=== PATIENT | female | born 1965 | race Caucasian/White ===

== ENCOUNTER 2016-09-08 16:10 | Observation (INO) | payer MEDICARE ==
[~2016-09-08] VITALS: Ht 167.6 cm; Wt 90.3 kg
[2016-09-08] VITALS (10 sets, daily range): BP systolic 103–167; BP diastolic 56–83; PULSE 45–75; RESP 11–20; O2SAT 94–100
[~2016-09-08 16:10] MED LIST: ASPI81TA2 PO; BUPR200T2 PO; Dexamethasone 4 mg/mL Inj ONE; EPHEDrine/NS 5 mg/mL 5 mL Syringe ONE; Glycopyrrolate 0.2 MG/ML 1mL Inj ONE; HYDROmorphone 2 mg/mL Inj ONE; Ketamine 10 mg/mL 20 mL Inj ONE; Neostigmine 1 mg/mL 10 mL Inj ONE; ONDA8TAB10 PO; Ondansetron 2 mg/mL 2 mL Inj ONE; PROC25SU30 RC; Propofol 10,000 mCg/mL 20 mL Inj ONE; Rocuronium 10 mg/mL 5 mL Inj ONE; Succinylcholine Chloride 20 mg/mL 5 mL Inj ONE; fentaNYL-PF 50 mCg/mL 2 mL Inj ONE
[2016-09-08] MEDS ORDERED: 0.9% Sodium Chloride 1,000 ML IV ONE (16:55)
--- NOTE | 2016-09-08 17:08 | ED.REPORT ---
HPI-Abd Pain F 40 and Over Date of Service Sep 08, 2016 ED Provider: Brian Justin PA-C Charlette is a 51-year-old female with a history of fibromyalgia, migraines, hypertension and gastric bypass surgery who presents emergency Department with a chief complaint of epigastric pain. She states this pain has been worsening over the last 3 weeks. She describes it as sharp and intermittent and rates it as 7/10. She states that the episodes last approximately 15 minutes. She admits when episode of vomiting without blood yesterday. Denies fever, black/ tarry stools. Admits to an episode of diarrhea but also admits that this is common for her. She also complains of increasing weakness, shortness of breath, difficulty walking, feeling shaky over the last week. She states that this is how she felt when she was hypokalemic previously due to diuretic use. She takes potassium supplements now. Denies history of blood clots, recent trauma, surgery, travel. Denies exogenous estrogen, unilateral leg swelling, hemoptysis. She also complains of chronic sinus infection since last May. She was treated last month for Levaquin, prednisone and Flonase for her symptoms continue. Complains of left ear pain. Patient states that she recently left her previous pain clinic and has been off of her narcotic pain medications. She is waiting to establish care at her new clinic. Admits smoking. Denies cardiac history, chest pain, palpitations, urinary symptoms. She is on her menstrual period now. Nursing Notes Stated Complaint: SOB,DIZZY Chief Complaint: General Complaint Nursing Notes Reviewed: Yes Allergies: Coded Allergies: chlorzoxazone (Verified Allergy, Severe, altered mental status, 11/10/15) NSAIDS (Non-Steroidal Anti-Inflamma (Verified Allergy, Unknown, 11/10/15) Sulfa (Sulfonamide Antibiotics) (Verified Allergy, Unknown, 11/10/15) tetracycline (Verified Allergy, Unknown, 11/10/15) Scheduled Ondansetron ODT (Ondansetron ODT) 8 Mg Tab.rapdis 8 MG PO QID Scheduled PRN Prochlorperazine Maleate (Compazine Suppository) 25 Mg Supp.rect 25 MG RC Q8 PRN PRN For Nausea/Vomiting Miscellaneous Medications Aspirin-Expunged Drug, Do Not Renew! (Aspirin-Expunged Drug, Do Not Renew!) 81 Mg Tab 81 MG PO Bupropion-Expunged Drug, Do Not Renew! (Bupropion SR-Expunged Drug, Do Not Renew !) 200 Mg Tablet.sa 200 MG PO General Time Seen by MD: 16:34 Chief Complaint Abdominal pain Sudden in Onset?: No Past Medical History Past Medical History Fibromyalgia Arthritis Migraines Hypertension Past Surgical History gastric bypass Family History Reviewed, not relevant Smoking History Current Every Day Smoker Social History Alcohol Use: Denies alcohol use Drug Use: Denies drug use Other Social History: Good social support, Local resident Ambulatory Status Independent Review of Systems General: Denies fever, admits chills, malaise. HEENT: Denies congestion, headache, sore throat. Respiratory: Admits shortness of breath. Denies dyspnea, cough, wheezing. Cardiovascular: Denies chest pain, palpitations. Gastrointestinal: Admits vomiting, diarrhea, abdominal pain. Genitourinary: Denies frequency, urgency, dysuria, hematuria. Otherwise as noted in HPI. Physical Exam General: Well appearing, well developed, obese, no acute distress. Head: Atraumatic, normocephalic. No mastoid tenderness. Eyes: No scleral icterus or injection. No discharge. PERRL. Vision grossly intact. Ears: Pinna and tragus nontender with manipulation. External auditory canal patent, atraumatic and without discharge bilaterally. Right Tympanic membrane esparza, shiny and translucent without fluid, bulging, retraction or perforation. Left Tympanic membrane dull, bulging with purulent fluid. Hearing grossly intact. Nose: Symmetrical, nares patent without discharge. Mild frontal and maxillary sinus tenderness. Mouth/pharynx: normal dentition, mucus membranes moist. Tonsils 2+ and symmetrical, uvula midline. Pharynx noninjected, no cobblestoning or discharge. Voice clear. Neck: No tenderness or lymphadenopathy. Trachea midline. Respiratory: Regular rate and rhythm. Breath sounds present, clear to auscultation and equal bilaterally. No respiratory distress. No increased work of breathing, speaks in complete sentences. Cardiovascular: Regular rate and rhythm, without murmur, gallop or rub. No pedal edema. Gastrointestinal: Abdomen notable for excess skin indicating weight loss and scars consistent with gastric bypass surgery. Mild epigastric and right upper quadrant tenderness without guarding or rebound. Mild to moderate Clarke's sign. Bowel sounds normoactive. No bruising. Skin: Warm and dry. Neurological: Grossly nonfocal. Psychological: Alert and oriented. Speech appropriate, linear and logical. Behavior appropriate. Vital Signs Vital Signs (First) Date Time Temp Pulse Resp B/P Pulse Ox O2 Delivery O2 Flow Rate FiO2 09/08/16 16:13 36.8 75 108/78 100 Initial VS: Reviewed, Vital signs normal Interpretation & Diagnostics Lab Results Interpretation Result Diagram: 09/08/16 1706 09/08/16 1706 Test 09/08/16 17:06 White Blood Count 4.3th/mm3 (3.8-10.1) Red Blood Count 4.19mil/mm3 (3.90-5.20) Hemoglobin 12.2g/dL (12.0-15.6) Hematocrit 37.9% (35.0-46.0) Mean Corpuscular Volume 90.5fL (81-100) Mean Corpuscular Hemoglobin 29.1pg (27.0-35.0) Mean Corpuscular Hemoglobin Concent 32.2% (32.0-37.0) Red Cell Distribution Width 14.9% (12.3-15.4) Platelet Count 259bil/L (150-400) Neutrophils (%) (Auto) 58.0% (40-74) Lymphocytes (%) (Auto) 31.4% (14-46) Monocytes (%) (Auto) 5.5% (4-12) Eosinophils (%) (Auto) 4.6% (0-5) Basophils (%) (Auto) 0.5% (0-3) Sodium Level 138mEq/L (134-144) Potassium Level 4.2mEq/L (3.5-5.2) Chloride Level 102mEq/L (97-108) Carbon Dioxide Level 21mmol/L (18-29) Blood Urea Nitrogen 25mg/dL (6-24) Creatinine 0.88mg/dL (0.57-1.00) Estimat Glomerular Filtration Rate 97mL/min (>59) Glucose Level 92mg/dL (60-99) Calcium Level 9.1mg/dL (8.5-10.1) Total Bilirubin 0.2mg/dL (0.0-1.2) Aspartate Amino Transf (AST/SGOT) 63U/L (0-50) Alanine Aminotransferase (ALT/SGPT) 114U/L (0-32) Alkaline Phosphatase 104U/L (25-150) Total Protein 7.1g/dL (6.4-8.4) Albumin 4.2g/dL (3.4-5.0) Lipase 26U/L (13-60) Hold Caceres Top Tube Received (Received) US Focused Biliary PROCEDURE: US ABDOMEN, LIMITED ([id number]) INDICATIONS: 51-year-old female with right upper quadrant tenderness and Clarke sign. IMPRESSION: 1. Mildly dilated extrahepatic bile duct, along with findings suspicious for small extrahepatic bile duct stone. 2. Solitary small non mobile gallbladder polyp, without additional gallstones. Re-Eval/Medical Decision Med Decision/Clinical Course PERC negative Consultation : Referral / Consult Name: Santiago Pappas MD Consulted With: Surgeon Call Returned at: 19:33 Note: Discussed the case with Dr. Petit who met with the examine the patient. He feels she is a good candidate for surgery and is taking her to the operating room. Discharge & Departure Primary Impression: Bile duct stone Cholecystitis presence: without cholecystitis Additional Impression: Left otitis media Otitis media type: unspecified Chronicity: unspecified Qualified Code: H66.92 - Otitis media, unspecified, left ear Disposition: ADMITTED TO HOSPITAL Referrals: James Whitney DO (PCP) EDSupervising Provider for APC: Demetri Cordon DO copies to: James Whitney Seth PA-C Sep 08, 2016 17:08
[2016-09-08 17:29] LABS: BASOPHILS % (AUTO) 0.5 % (0-3); EOSINOPHILS % (AUTO) 4.6 % (0-5); MONOCYTES % (AUTO) 5.5 % (4-12); Mean Corpuscular Hemoglobin 29.1 pg (27.0-35.0); Mean Corpuscular Volume 90.5 fL (81-100); Platelet Count 259 bil/L (150-400)
[2016-09-08] MEDS: HYDROmorphone 0.5 mg/0.5 mL iSecure Syringe IVPUSH PRN ×2 (17:32→18:04)
--- NOTE | 2016-09-08 18:22 | DRSVH ---
PROCEDURE: US ABDOMEN, LIMITED ([id number]) INDICATIONS: 51-year-old female with right upper quadrant tenderness and Clarke sign. TECHNIQUE: Real-time focused scanning was performed of the abdomen, with image documentation. COMPARISON: None. FINDINGS: No gallstones or biliary sludge. Small non mobile gallbladder polyp is noted. Gallbladde r wall thickness is normal. No pericholecystic fluid. No sonographic Clarke's sign. Extrahepatic b ile duct is mildly dilated up to 8 mm. A less than 5 mm echogenic focus is noted within. IMPRESSION: 1. Mildly dilated extrahepatic bile duct, along with findings suspicious for small extrahepatic bile duct stone. 2. Solitary small non mobile gallbladder polyp, without additional gallstones. Dictated by: Brian Skinner M.D. on 09/08/2016 at 18:18 Approved by: Brian Skinner M.D. on 09/08/2016 at 18:21
[2016-09-08] MEDS ORDERED: CeFAZolin Inj 2 GM in IV Premix 1 EACH IV ONE (19:55)
[2016-09-08] MEDS ORDERED: Lactated Ringer's 1,000 ML IV SCH ×2 (20:24→21:35)
[2016-09-08] MEDS ORDERED: Lactated Ringer's 500 ML IV PRN (20:24)
[2016-09-08] MEDS ORDERED: Ondansetron 2 mg/mL 2 mL Inj IVPUSH PRN ×2 (20:25→21:30)
[2016-09-08] MEDS ORDERED: Dexamethasone 4 mg/mL Inj IVPUSH PRN (20:25)
[2016-09-08] MEDS ORDERED: MetoCLOpramide 5 mg/mL 2 mL Inj IVPUSH PRN ×2 (20:25→21:35)
[2016-09-08] MEDS ORDERED: EPHEDrine Sulfate 50 mg/mL Inj IVPUSH PRN (20:25)
[2016-09-08] MEDS ORDERED: Phenylephrine 10,000 mCg/mL Inj IVPUSH PRN (20:25)
[2016-09-08] MEDS ORDERED: Bupivacaine-MPF 0.5% W/EPI 30 mL Inj INFILTRATE ONE (20:55)
--- NOTE | 2016-09-08 20:58 | PCM.HPANE ---
Patient Data Date of Service: Sep 08, 2016 Surgeon Admitting Provider: Attending Provider:Santiago Pappas MD Primary Care Physician:James Whitney DO Other Provider: Reason for Visit Cholelithiasis Ht/WT & BMI Height (Feet): 5 Height (Inches): 6 Weight (Kilograms): 90.91 Body Mass Index Allergies Coded Allergies: chlorzoxazone (Verified Allergy, Severe, altered mental status, 11/10/15) NSAIDS (Non-Steroidal Anti-Inflamma (Verified Allergy, Unknown, 11/10/15) Sulfa (Sulfonamide Antibiotics) (Verified Allergy, Unknown, 11/10/15) tetracycline (Verified Allergy, Unknown, 11/10/15) Diabetes History Hx Diabetes?: No MRSA MRSA: No Medications Hypertension Medication: No Home Meds Incl Beta Cheko: No Active Scripts Ondansetron ODT 8 Mg Tab.rapdis8 Mg PO QID #20 TABLET Prov:Bashir Durán MD 11/10/15 Prochlorperazine Maleate (Compazine Suppository)25 Mg Supp.rect25 Mg RC Q8 PRN For Nausea/Vomiting #20 SUPP.RECT Prov:Bashir Durán MD 11/10/15 Reported Medications Bupropion-Expunged Drug, Do Not Renew! (Bupropion SR-Expunged Drug, Do Not Renew !)200 Mg Tablet.sa200 Mg PO 06/20/12 Aspirin-Expunged Drug, Do Not Renew! 81 Mg Tab81 Mg PO 06/20/12 History History of ENT Problems?: No Hx of Heart Problems?: Yes Cardiovascular History: Positive for:: Hypertension Denies:: Congestive Heart Failure Hx of Respiratory Problem?: Yes Respiratory History: Denies:: Tuberculosis Other History/Comment tobacco Hx Neurologic Problems?: Yes Neurological History: Positive for:: Headaches Hx of GI Problems?: Yes Gastrointestinal History: Positive for:: Gall Bladder Disease Hx of Problems?: No Hx Musculoskeletal Problems?: Yes Musculoskeletal History: Positive for:: Fibromyalgia Hx of Psycho/Social Problems?: Yes Psycho Social History: Positive for:: Anxiety Hx Surgeries?: Yes (gastric bypass (2008)) Hx Diabetes: No Other History/Comment chronic opioid for pain Hx Alcohol Use: NoHx Substance Use: No Smoking Status: Current Every Day Smoker Have You Smoked inLast 12 mo: Yes Stop/Bang Treated for Sleep Apnea?: No Do You Have a CPAP Machine?: No S-Snoring: Do You Snore Loudly: No T-Tired: feel tired, fatigued: No O-Obsered: Observed not breath: No P-Blood Pressure: treated: Yes B- Body Mass Index > 35 kg/m2: No A- Age over 50: Yes N- Neck Large Circumference: No G- Gender Male: No SHARLA Risk Assessment: Low Risk, <3 Yes Risk Assessment Category Category 1A: Patient has history of documented sleep apnea, and HAS NOT received any narcotic, sedative or anesthesia administration during this stay. Category 1B: Patient has history of documented sleep apnea, and HAS received any narcotic , sedative or anesthesia administration during this stay Category 2: Patient has SUSPECTED Obstructive Sleep Apnea, and HAS received any narcotic , sedative or anesthesia administration during this stay. Category 3: Patient has SUSPECTED Obstructive Sleep Apnea and HAS NOT received narcotic, sedative or anesthesia administration during this stay. Category 4: Outpatient in Procedural Areas with known sleep apnea or who screen positive for High Risk via the STOP/BANG questionnaire. Exam Exam Vital Signs Vital Signs Date Time Temp Pulse Resp B/P Pulse Ox O2 Delivery O2 Flow Rate FiO2 09/08/16 16:13 36.8 75 108/78 100 General Appearance: Alert, Oriented X3 HEENT/AIRWAY: MP 1 Lungs: Clear to Auscultation Heart: Exam Unremarkable Meds/Labs/Diagnostics Admission Meds Current Medications Sodium Chloride (Normal Saline) 1,000 ml @ 0 mls/hr Q0M ONCE IV Last administered on 09/08/16t 17:18; Start 09/08/16 at 16:55; Stop 09/08/16 at 16:56; Status DC Labs Test 09/08/16 17:06 White Blood Count 4.3th/mm3 (3.8-10.1) Red Blood Count 4.19mil/mm3 (3.90-5.20) Hemoglobin 12.2g/dL (12.0-15.6) Hematocrit 37.9% (35.0-46.0) Mean Corpuscular Volume 90.5fL (81-100) Mean Corpuscular Hemoglobin 29.1pg (27.0-35.0) Mean Corpuscular Hemoglobin Concent 32.2% (32.0-37.0) Red Cell Distribution Width 14.9% (12.3-15.4) Platelet Count 259bil/L (150-400) Neutrophils (%) (Auto) 58.0% (40-74) Lymphocytes (%) (Auto) 31.4% (14-46) Monocytes (%) (Auto) 5.5% (4-12) Eosinophils (%) (Auto) 4.6% (0-5) Basophils (%) (Auto) 0.5% (0-3) Sodium Level 138mEq/L (134-144) Potassium Level 4.2mEq/L (3.5-5.2) Chloride Level 102mEq/L (97-108) Carbon Dioxide Level 21mmol/L (18-29) Blood Urea Nitrogen 25mg/dL (6-24) Creatinine 0.88mg/dL (0.57-1.00) Estimat Glomerular Filtration Rate 97mL/min (>59) Glucose Level 92mg/dL (60-99) Calcium Level 9.1mg/dL (8.5-10.1) Total Bilirubin 0.2mg/dL (0.0-1.2) Aspartate Amino Transf (AST/SGOT) 63U/L (0-50) Alanine Aminotransferase (ALT/SGPT) 114U/L (0-32) Alkaline Phosphatase 104U/L (25-150) Total Protein 7.1g/dL (6.4-8.4) Albumin 4.2g/dL (3.4-5.0) Lipase 26U/L (13-60) Hold Caceres Top Tube Received (Received) Plan Impression Patient chart reviewed, patient interviewed and anesthestic plan with risks, benefits, and alternatives discussed, and informed consent obtained. NPO Status: 1200 ASA Physical Status: ASA2 Mod Systemic Disease Anesthetic Plan: GA Bene/Risks/Altern/Consents: Yes HP Complete Prior to Induction: Yes Armen Vogel MD Sep 08, 2016 20:58
--- NOTE | 2016-09-08 21:27 | DRSVH ---
PROCEDURE: X-RAY OPERATIVE CHOLANGIOGRAM ([id number]) INDICATIONS: 51-year-old female with acute cholecystitis. COMPARISON: [facility], , [facility], 09/08/2016, 17:20. FINDINGS: Biliary ducts: The surgeon injected contrast into the biliary ducts after cannulation of the cystic duct stump. Visualized intra hepatic bile ducts are normal in caliber, without strictures. There is mild dilation of the extrahepatic bile duct. No intraluminal filling defects to suggest retained du ctal stones or sludge. No evidence for iatrogenic ductal injury. Duodenum: Contrast flows promptly through the sphincter of Oddi into the duodenum, which appears nor mal in caliber. IMPRESSION: Mildly dilated extrahepatic bile duct, with no visualized intraluminal stones. Dictated by: Brian Skinner M.D. on 09/08/2016 at 21:24 Approved by: Brian Skinner M.D. on 09/08/2016 at 21:26
[2016-09-08] MEDS ORDERED: diphenhydrAMINE 25 mg Capsule PO PRN (21:30)
[2016-09-08] MEDS ORDERED: Acetaminophen IV 1,000 MG in IV Premix 1 EACH IV PRN (21:30)
[2016-09-08] MEDS ORDERED: Dextrose 5% 500 ML IV SCH (21:34)
[2016-09-08] MEDS ORDERED: HYDROmorphone PCA 0.2 mg/mL 30 mL Inj IV PRN (21:35)
--- NOTE | 2016-09-08 21:39 | PCM.ANEP1 ---
Post Anesthesia Phase 1 PACU Phase 1 Assessment Date of Service: Sep 08, 2016 Vital Signs Vital Signs Date Time Temp Pulse Resp B/P Pulse Ox O2 Delivery O2 Flow Rate FiO2 09/08/16 21:35 45 18 156/68 95 Room Air 09/08/16 21:31 36.5 48 11 150/83 97 Room Air 09/08/16 16:13 36.8 75 108/78 100 Level of Alertness: Awake, talking Pain: Yes Pain Scale Score: 7 Nausea or Vomiting: No Oxygen Delivery: Room Air Lungs: Clear to Auscultation Armen Vogel MD Sep 08, 2016 21:39
--- NOTE | 2016-09-08 21:39 | PCM.ANEP2 ---
Post Anesthesia Evaluation ASA/CMS Post Anesthesia VS in Patient's Normal Range?: Yes Resp Stable; Airway Patent?: Yes CV Function & Hydration Stable: Yes Mental Status Recovered?: Yes Pain control Satisfactory?: Yes N/V Control Satisfactory?: Yes Armen Vogel MD Sep 08, 2016 21:39
[2016-09-08] MEDS: HYDROmorphone 1 mg/mL Inj IVPUSH PRN ×3 (21:44→22:00)
[2016-09-08] MEDS: fentaNYL-PF 50 mCg/mL 2 mL Inj IVPUSH PRN ×2 (21:54→22:00)
[2016-09-08] MEDS ORDERED: Acetaminophen IV 1,000 MG in IV Premix 1 EACH IV ONE (22:05)
[2016-09-08] MEDS ORDERED: Lactated Ringer's 1,000 ML IV ONE (22:21)
[2016-09-08] MEDS ORDERED: TOPI100T32 PO (23:57)
[2016-09-08] MEDS ORDERED: METH750T3 PO (23:57)
[2016-09-08] MEDS ORDERED: POTA99TA21 PO (23:57)
[2016-09-08] MEDS ORDERED: DULO60CA42 PO (23:57)
[2016-09-08] MEDS ORDERED: HYDR12.5 PO (23:57)
[2016-09-08] MEDS ORDERED: PHEN-877 PO (23:57)
[2016-09-08] MEDS ORDERED: GABA600T2 PO (23:57)
[2016-09-09] MEDS ORDERED: DULoxetine 30 mg DR Capsule PO SCH (00:18)
[2016-09-09] MEDS ORDERED: ALPR0.5T PO (00:22)
[2016-09-09] MEDS ORDERED: ALPRAZolam 0.5 mg Tablet PO PRN (01:05)
[2016-09-09 01:45] VITALS: RESP 14; O2SAT 98
--- NOTE | 2016-09-09 02:04 | HP ---
[address] [address] HISTORY AND PHYSICAL PATIENT: MICHELLE MCLAUGHLIN : 1965 MR#: [id number] ADMIT: 09/08/2016 JOB ID: [id number] CHIEF COMPLAINT: Brian Justin has asked me to see this 51-year-old woman with symptomatic gallstones. HISTORY OF PRESENT ILLNESS: The patient presented to the emergency department today with an array of symptoms including weakness, shortness of breath, difficulty walking and feeling shaky over the previous week, but these all seem to be related with episodes of epigastric and right upper quadrant pain that comes on and lasts for approximately 15-30 minutes, but has now come on gradually and has remained at a level of 2/10. The patient does have chronic pain and fibromyalgia, but this is different than her chronic pain. PAST MEDICAL HISTORY: Laparoscopic gastric bypass in July 2007 with a good weight loss result. She has baseline intermittent diarrhea, nausea and vomiting that she attributes to this. MEDICATIONS: 1. Ondansetron q.i.d. 2. PRN Compazine suppositories. ALLERGIES: 1. SULFA. 2. TETRACYCLINE. 3. As well, she has been told not to take NONSTEROIDAL ANTI-INFLAMMATORY DRUGS after her gastric bypass. SOCIAL HISTORY: Lives with her . Smokes cigarettes on a daily basis. Does not drink alcohol on a daily basis. FAMILY HISTORY: Noncontributory. REVIEW OF SYSTEMS: Full review of systems negative. PHYSICAL EXAMINATION: Vital signs within normal limits. Temperature is 36.8, pulse is 77, blood pressure is 108/78. Her sclerae are clear. Her neck has some reduced range of motion. She complains of tenderness in her shoulders. Breasts are not examined. Lungs are clear. Heart sounds are regular. Abdomen is soft, with scars consistent with her previous surgical history. No palpable hernias. No significant right upper quadrant tenderness. Extremities without edema. LABORATORY DATA: White count is 4.3, hematocrit is 37.9. Electrolytes normal. BUN is mildly elevated at 25. LFTs and lipase are normal except for mild elevation of her AST and ALT at 63 and 114. IMAGING: She had abdominal ultrasound that shows what I believe is a possible gallstone that is read by radiologist as small nonmobile gallbladder polyp. However, it is felt that she has an extrahepatic bile duct that is 8 mm and has a 5 mm echogenic focus within it that is suspicious for an extrahepatic bile duct stone. IMPRESSION AND PLAN: I think that she has asymptomatic gallstones. Although she does have a chronic pain consultation, she now has an acute pain that sounds very consistent with biliary colic. Given her history of gastric bypass, she would be a difficult candidate for an ERCP. On that basis, I have recommended that we proceed with a laparoscopic cholecystectomy for symptomatic gallstones with intraoperative cholangiogram. We did talk about the option of no surgery or delayed surgery, and she would like to proceed as soon as possible. We discussed risks, benefits, and possible complications of surgery, including common duct injury, and she would like to proceed today.
[2016-09-09 03:55] VITALS: RESP 14; O2SAT 100
[2016-09-09] MEDS ORDERED: 0.9% Sodium Chloride 100 ML ONE (04:17)
[2016-09-09 06:19] VITALS: RESP 14; O2SAT 100
[2016-09-09 06:29] VITALS: BP 115/71; PULSE 82; RESP 18; O2SAT 97
--- NOTE | 2016-09-09 08:38 | OP ---
[address] [address] OPERATIVE REPORT PATIENT: MICHELLE MCLAUGHLIN : 1965 MR#: [id number] ADMIT: 09/08/2016 JOB ID: [id number] DATE OF SURGERY: 09/08/2016 PREOPERATIVE DIAGNOSIS(ES): Biliary colic, possible choledocholithiasis. POSTOPERATIVE DIAGNOSIS(ES): 1. Biliary colic, possible choledocholithiasis. 2. 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 SURGEON: Santiago Pappas MD SHOT TUBE MACHINE TENDER: Marium Ibarra PA-C PROCEDURE: 1. Laparoscopic cholecystectomy with intraoperative cholangiogram. 2. Laparoscopic exploration of previous gastric bypass anatomy. INDICATION: This is a 51-year-old woman, who presents with a history suggestive of biliary colic in the setting of chronic GI complaints following a very successful laparoscopic gastric bypass in 2008. Liver function tests are mildly abnormal and an ultrasound is read as showing a probable fixed gallbladder polyp, possible common duct stone and an 8 mm common bile duct. She is brought to the operating room for laparoscopic cholecystectomy and cholangiogram for presumptive symptomatic cholelithiasis with biliary colic and possible choledocholithiasis. FINDINGS: 1. No evidence for acute or chronic cholecystitis. 2. Intraoperative cholangiogram demonstrated a very large common duct up to 1 cm with normal ductal anatomy, brief delay of filling of the duodenum, but no evidence of choledocholithiasis at the completion of the procedure. Please see below for details. 3. congressional assistant was medically necessary for the safe and timely completion of the operation, including retraction and camera operation. 4. At the end of the procedure, I did examine her anatomy of her gastric bypass. It appears that she has a retrocolic Gabriel-en-Y gastric bypass with possibly a Tsang space hernia, possibly a hernia in the infracolic position as described below. Please see below for details. DESCRIPTION OF PROCEDURE: The patient was brought to the operating room. General anesthetic was administered. Abdomen was prepped and draped in a sterile fashion. Surgical time-out was performed. SCOAP protocol was followed. She received perioperative Ancef. I began with a Veress needle in the right upper quadrant, followed by insufflation. I then placed an optical trocar in the periumbilical area, followed by three other trocars in our standard gallbladder position. There was no free fluid in the abdomen. Gallbladder was thin-walled, robins egg blue, but it was dilated. There was one band adhesion from the left lobe of the liver to the distal stomach that I snipped. My initial impression was that the patient had a dilated antecolic Gabriel-en-Y limb. We began with the gallbladder. The gallbladder is retracted cephalad. We could easily see what was an obviously dilated common duct. I grasped the infundibulum of the gallbladder and retracted it to the patient's right, and proceeded to dissect close to the gallbladder wall, identifying the cystic duct as it entered the gallbladder. We further dissected out the triangle of Calot, dividing the cystic artery with a clip. I now put a clip on the patient's side of the cystic duct. We made a cystic duct incision and placed our cholangiocatheter once x-ray was available. In the interim, we did further dissection along the gallbladder wall, identifying the cystic plate and dissecting almost up to the top of the gallbladder. We now obtained our cholangiogram. Dye injected easily. We had an initial filling of the cystic duct and then what was an obviously dilated common duct, that I would put at 1 cm or slightly above that. The distal duct filled well. There was no initial flow into the duodenum, and the duct filled up proximally. The distal bile duct did not end in a meniscus but instead was tapered. We saw normal intrahepatic duct anatomy, except for the fact that everything was dilated, and then saw release at the ampulla with a stream of dye going through what appeared to be a fairly tight ampulla, but then with ventral good relaxation and good filling of the duodenum. Again, there was never undue pressure within the bile duct system and I never saw any sort of a meniscus that would be suggestive of a stone. It was an interesting cholangiogram, and I wondered whether there was a small bit of gravel that had been stuck in the ampulla that we flushed through. Unfortunately, at the end of the case, I was notified that the fluoroscopy portion of the operation ended up not being saved despite our request and the standard protocol, so this information is more or less lost. Having completed our cholangiogram, I removed the cholangiocatheter, placed two clips on the patient's side of the cystic duct and divided the cystic duct with scissors. We then dissected the gallbladder out of the liver bed without spillage of any stones but some spillage of bile. The gallbladder was removed in a bag to avoid wound contamination. We suctioned up all of our bile and irrigated it clear, suctioned out all our irrigation. The liver bed was clean without bile leak and without bleeding. We were now done with the cholecystectomy. I decided I would take a quick look at the patient's gastric bypass, as I was under the impression that she had what appeared to be an antecolic dilated Gabriel limb. However, closer inspection revealed that this was indeed the colon and, as we elevated the colon and the transverse mesocolon, it appeared that the patient had some sort of retrocolic Gabriel-en-Y gastric bypass. There was no obvious twist of the bowel and nothing was dilated, though is looking as if she had a potential hernia either through a large opening in the mesocolon or perhaps this was some sort of Tsang space hernia. I elected not to pursue identifying her anatomy further given a number of factors including that we were performing an after hours operation primarily for her gallbladder symptoms as well as the fact that I did not have her operative note available for review, and given the chronic nature of her intermittent nausea and vomiting, there was no urgent need to address what I believed may be one or two internal hernias, though this could also represent a more complex problem. We therefore let out our CO2 and removed our ports under laparoscopic vision, closed the wounds with absorbable suture including an 0-Vicryl at the 12 mm port. The findings were discussed with the patient's . I will review her findings tomorrow, but my recommendation will be to follow up with her bariatric surgeon for review of possible internal hernia and consideration of an elective operation to address these.
--- NOTE | 2016-09-09 09:21 | PCM.DISURG ---
Surgical Discharge Instruction Date of Service Sep 09, 2016 Dates of Hospitalization Date of Hospital Admission Sep 08, 2016 at 22:48 Providers Admitting Physician: Santiago Pappas MD Primary Care Physician: James Whitney DO Attending Physician: Santiago Pappas MD Discharge Diagnosis Discharge Diagnosis 1) symptomatic gallstones, probable choledocholithiasis 2) chronic pain 3) internal hernia s/p gastric bypass 4) tobacco use Post Operative diagnosis same Diet Discharge Diet: No restrictions Activity Discharge Activity-General: No restrictions Dressing and Incisional Care Dressing Care: Allow Steri Stripes to fall off, Remove outer dressing after 24 hrs Hygiene: May shower Additional Instructions Discharge Instructions 1) resume all previous meds 2) follow up with your bariatric surgeon ANKUSH to discuss surgery to fix your internal hernia as it can cause a life threatening bowel obstruction 3) follow up with your new pain clinic for any further narcotic needs Follow Up Plan Follow Up Plan in 2-3 weeks follow up with [facility] General Surgery [facility] clinic to review your pathology and wound check Call your provider for: Other (if you develop severe abdominal pain and vomiting, go to the [facility] or the nearest ED with a bariatric surgeon and tell them you have an internal hernia) Santiago Pappas MD Sep 09, 2016 09:21
[2016-09-09] MEDS ORDERED: OXYC5TAB72 PO (09:23)
--- NOTE | 2016-09-09 15:01 | PROG NOTE ---
[address] [address] PROGRESS NOTE PATIENT: MICHELLE MCLAUGHLIN : 1965 MR#: [id number] ADMIT: 09/08/2016 JOB ID: [id number] DATE: 09/09/2016 The patient is seen the morning after a laparoscopic cholecystectomy. She is afebrile, pulse is 82, blood pressure is normal. She and her confirm that she feels much better after her surgery and that the right upper quadrant pain is gone. I have reviewed the operative findings including probable choledocholithiasis, but as well, findings of what appears to be an internal hernia following her gastric bypass. We discussed that this internal hernia may possibly be related to her intermittent nausea and vomiting, but more importantly, that she is at risk for catastrophic intra-abdominal obstruction and I have recommended that she follow up either with her bariatric surgeon at [place] or obtain the operative note and follow up with another bariatric surgeon, who should proceed with a repair of this internal hernia after possible further workup to understand the specifics of her anatomy. I offered her a prescription for a nicotine patch with the understanding that she will need to follow up with another provider regarding smoking cessation. I have told her that I will be discharging her with 14 oxycodone 5 mg to address her immediate postop pain, but that in terms of her long-term pain management, she will need to follow up with her new pain clinic. She acknowledged this, though then told the nurse that her pain was 8/10. Given her chronic narcotic use and the objective findings, at this point, I do not think that giving her higher doses of narcotics will effectively alleviate her pain, and I have discussed this with the patient and with her nurse. She will be discharged today, follow up regarding her gallbladder surgery with [facility], but regarding her internal hernia, with her bariatric surgeon or another bariatric surgeon, and regarding her chronic pain medications and her smoking cessation with other physicians.
--- NOTE | 2016-09-09 18:29 | DIS ---
[address] [address] DISCHARGE SUMMARY PATIENT: MICHELLE MCLAUGHLIN : 1965 MR#: [id number] ADMIT: 09/08/2016 JOB ID: [id number] DIS: 09/09/2016 DIAGNOSES: 1. Symptomatic gallstones. 2. Probable choledocholithiasis. 3. Chronic pain. 4. Internal hernia, status post gastric bypass. 5. Tobacco use. OPERATIONS AND PROCEDURES: Laparoscopic cholecystectomy with intraoperative cholangiogram, laparoscopic exploration of the abdomen. HOSPITAL COURSE: A 51-year-old woman who presented with progressive right upper quadrant pain that was suggestive of biliary colic. Ultrasound demonstrated gallbladder polyp versus a solitary immobile stone, demonstrated common duct with extrabiliary gallstone in the bile duct. Her past medical history was significant for chronic pain, tobacco use, and a history of laparoscopic gastric bypass at [facility] in . She was taken the operating room where we found a noninflamed gallbladder that was removed. Intraoperative cholangiogram demonstrated that her common duct was dilated, but we did clear this and I do believe that she may have had a small common duct stone that was flushed through. Other possible explanation would be some sort of ampullary spasm. However, the morning after surgery, she was markedly better symptomatically and went home, resuming all of her previous medications with 14 additional oxycodone for pain. At the time of surgery, however, I did identify that she has an internal hernia, status post her gastric bypass that may account for some of her intermittent nausea and vomiting and certainly needs to be addressed and repaired due to the risk of catastrophic small bowel obstruction. This was explained to the patient and the rationale behind why I did not fix this the night before. She will follow up either with her own bariatric surgeon or she will obtain an operative note from [facility] and followup with another bariatric surgeon. I have recommended that she do this as soon as possible. She does have followup scheduled this week with a new pain clinic and I have told her that anything beyond those 14 oxycodone tablets for postop pain that she requires, she will need to go through them. She will follow up in 2-3 weeks with the [facility] General Surgery [facility] clinic to review the pathology of her gallbladder and to check her wounds. I have also given her a prescription for a nicotine patch, though I have told her that she will need to follow up with a primary care physician or her Pain Clinic regarding smoking cessation.
--- NOTE | 2016-09-18 15:54 | PATH ---
SURGICAL PATHOLOGY Attending Physician:Santiago Pappas MD CASE STATUS: Signed Out * Amended * PATIENT NAME: MICHELLE MCLAUGHLIN PID: [id number] : 1965 DATE COLLECTED:09/08/2016 00:00 SPECIMEN: Gallbladder CLINICAL HISTORY: SYMPTOMATIC GALLSTONES 1). GALLBLADDER FINAL DIAGNOSIS: Gallbladder, Laparoscopic Cholecystectomy: Chronic cholecystitis and cholesterolosis. ICD10 K81.1 This case was reviewed and interpreted by Dr. Hannah Austin. The final diagnosis is unchanged. This amendment is issued in order for the report to cross the interface and be available in the hospital electronic medical record. GROSS DESCRIPTION: The specimen is received in one formalin filled container labeled with the patient's name, sublabeled "gallbladder" and consists of an opened 8.0 x 3.0 x 2.0 CM gallbladder. The serosa is smooth. The wall is 0.2-0.4 CM in thickness. The mucosa is a light green in color. The lumen contains a light green mucoid material and no calculus are noted. 5 franchise sales representative sections are submitted in one cassette. 09/10/2016 [facility] ICD-9 CODES: CPT CODES: 1: 52401 AMENDMENT(S): Amended: 09/18/2016 by Tasia Mills Reason:Miscellaneous The final diagnosis is unchanged. This amendment is issued in order for the report to cross the interface and be available in the hospital electronic medical record. Previous Signout Date: 09/12/2016 Electronically Signed Out Enma Luna MD [facility] [address], [place] [address] Technical component performed at [facility], [address] [place] [address] Ave[address], [place], [address]
== END 2016-09-09 10:33 | disposition home or self-care (01) ==
LOC: SED 16:10 → ORA 19:49 → OSC 22:48
PROVIDERS: ADMIT Surgery; ATTEND Surgery
DX: K80.50 Calculus of bile duct without cholangitis or cholecystitis without obstruction (principal); K46.9 Unspecified abdominal hernia without obstruction or gangrene; H66.92 Otitis media, unspecified, left ear; M79.7 Fibromyalgia; I10 Essential (primary) hypertension; M19.90 Unspecified osteoarthritis, unspecified site; F41.9 Anxiety disorder, unspecified; F17.210 Nicotine dependence, cigarettes, uncomplicated; Z88.8 Allergy status to other drugs, medicaments and biological substances; Z98.84 Bariatric surgery status
CPT/HCPCS: 36415; 47563; 74300; 76705; 80053; 83690; 85025; 88304; 96361; 96374; 96375; 96376; 99285; G0378; J0131; J0330; J0690; J1100; J1170; J1885; J2250; J2270; J2405; J2710; J2765; J3010; J7030; J7120; Q9967

== ENCOUNTER 2016-11-09 17:38 | Emergency (ER) | payer MEDICARE ==
[~2016-11-09] VITALS: Ht 167.6 cm; Wt 90.9 kg
[~2016-11-09 17:38] MED LIST changes: +ALPR0.5T PO; -ASPI81TA2 PO; -BUPR200T2 PO; +DULO60CA42 PO; -Dexamethasone 4 mg/mL Inj ONE; -EPHEDrine/NS 5 mg/mL 5 mL Syringe ONE; +GABA600T2 PO; -Glycopyrrolate 0.2 MG/ML 1mL Inj ONE; +HYDR12.5 PO; -HYDROmorphone 2 mg/mL Inj ONE; -Ketamine 10 mg/mL 20 mL Inj ONE; +METH750T3 PO; -Neostigmine 1 mg/mL 10 mL Inj ONE; +OXYC5TAB72 PO; -Ondansetron 2 mg/mL 2 mL Inj ONE; +PHEN-877 PO; +POTA99TA21 PO; -Propofol 10,000 mCg/mL 20 mL Inj ONE; -Rocuronium 10 mg/mL 5 mL Inj ONE; -Succinylcholine Chloride 20 mg/mL 5 mL Inj ONE; +TOPI100T32 PO; -fentaNYL-PF 50 mCg/mL 2 mL Inj ONE
[2016-11-09 17:40] VITALS: BP 114/70; PULSE 79; RESP 16; O2SAT 100
[2016-11-09 18:21] LABS: BASOPHILS % (AUTO) 0.5 % (0-3); EOSINOPHILS % (AUTO) 5.3 % (0-5); MONOCYTES % (AUTO) 8.7 % (4-12); Mean Corpuscular Hemoglobin 28.6 pg (27.0-35.0); Mean Corpuscular Volume 90.2 fL (81-100); Platelet Count 279 bil/L (150-400)
[2016-11-09 18:42] LABS: Magnesium 2.2 mg/dL (1.6-2.6)
[2016-11-09 19:40] LABS: APPEARANCE,URINE CLEAR (CLEAR,HAZY); COLOR,URINE DARK YELLOW (YELLOW); OCCULT BLOOD,URINE LARGE (NEGATIVE); PH,URINE 5.5 (5.0-8.0); UROBILINOGEN,URINE NORMAL (NORMAL)
--- NOTE | 2016-11-09 19:56 | ED.REPORT ---
HPI-Abd Pain F 40 and Over Date of Service Nov 09, 2016 ED Provider: Damon Almeida MD Pt is a 51 year old female with a history of HTN who presents to the ED complaining of abdominal pain onset 1 week ago. The pt had a Cordero hernia repair on the 11/01/16 and reports that the pain has increased since. She describes the pain as stabbing and burning, which are exacerbated by movement. She denies fever, chills, and drainage from the wound. She also denies groin pain, change in bowel habits, and any urinary Sx. The pt admits to vomiting 1x 2 days ago. She had a cholecystectomy in 09/24 at [facility]. Nursing Notes Stated Complaint: PAIN IN ABDOMEN,RT SIDE-SX 8 DAYS AGO Chief Complaint: Female Abdominal Pain Nursing Notes Reviewed: Yes (Vdopia not reconciled) Allergies: Coded Allergies: chlorzoxazone (Verified Allergy, Severe, altered mental status, 11/09/16) NSAIDS (Non-Steroidal Anti-Inflamma (Verified Allergy, Unknown, 11/09/16) Sulfa (Sulfonamide Antibiotics) (Verified Allergy, Unknown, 11/09/16) tetracycline (Verified Allergy, Unknown, 11/09/16) Scheduled Duloxetine (Cymbalta) 60 Mg Capsule.dr 60 MG PO HS Gabapentin (Gabapentin) 600 Mg Tablet 600 MG PO HS Hydrochlorothiazide (Hydrochlorothiazide) 12.5 Mg Capsule 12.5 MG PO DAILY Ondansetron ODT (Ondansetron ODT) 8 Mg Tab.rapdis 8 MG PO QID Phenylephrine HCl (Sudafed PE) 10 Mg Tablet 10 MG PO QID Topiramate (Topamax) 100 Mg Tablet 100 MG PO HS Scheduled PRN Alprazolam (Xanax) 0.5 Mg Tablet 0.5 MG PO BID PRN PRN For Anxiety Methocarbamol (Methocarbamol) 750 Mg Tablet 1,500 MG PO BID PRN PRN For Spasm Methocarbamol (Methocarbamol) 750 Mg Tablet 750 MG PO BID PRN PRN For Spasm Prochlorperazine Maleate (Compazine Suppository) 25 Mg Supp.rect 25 MG RC Q8 PRN PRN For Nausea/Vomiting oxyCODONE (oxyCODONE) 5 Mg Tablet 5 MG PO Q4H PRN PRN For Moderate Pain oxyCODONE-Acetaminophen 5-325 mg (oxyCODONE-Acetaminophen 5-325 mg) 1 Each Tablet 1 TAB PO Q6H PRN PRN For Pain Miscellaneous Medications Potassium Gluconate (Potassium) 99 Mg Tablet 99 MG PO General Time Seen by MD: 19:54 Chief Complaint Abdominal pain Hx Obtained From: Patient Arrived By: Walk-in Sudden in Onset?: No Onset Occurred: 1 week ago Symptom Duration: Since onset Progression since Onset: Constant Location: : RLQ Quality: Painful, Stabbing Severity: Current: Moderate Severity: Maximum: Moderate Recent Healthcare: Recent doctor visit, Previous surgery Similar Sx Previous: Yes Past Medical History Past Medical History Fibromyalgia Arthritis Migraines Hypertension Past Surgical History gastric bypass Cholecystectomy Merged With [facility] September 2016 Cordero hernia repair on 11/01/16 Family History Reviewed, not relevant Smoking History Current Every Day Smoker Social History Alcohol Use: Denies alcohol use Drug Use: Denies drug use Other Social History: Good social support, Local resident Ambulatory Status Independent Review of Systems Denies wound drainage Constitutional: Denies: Chills, Fever GI: Reports: Abdominal pain, Vomiting (1x 2 days ago), Denies: Constipation, Diarrhea Female: Denies: Dysuria, Urination decreased, Urination increased Complete sys rev & neg: except as marked. Physical Exam Vital Signs Vital Signs (First) Date Time Temp Pulse Resp B/P Pulse Ox O2 Delivery O2 Flow Rate FiO2 11/09/16 17:40 36.2 79 16 114/70 100 Room Air Initial VS: Reviewed, Vital signs normal Head / Eyes: Atraumatic, Normocephalic, PERRL ENT: Mucous membranes moist, Conjunctiva normal, No scleral icterus Neck: Supple, Full range of motion Extremities: Vascular intact, Neuro intact, No swelling Skin: Warm, Dry, No cyanosis Neurologic: Alert, Oriented, Nonfocal Psychiatric: Mood/affect normal, Behavior normal General/Constitutional: Awake, Alert, No acute distress, Well appearing, Cooperative, Not toxic appearing Respiratory / Chest: Breath sounds NL, Breath sounds = bilat, No respiratory distress, No rales, No rhonchi, No wheezing, No retractions Cardiovascular: Heart rate NL, Regular rhythm, Heart sounds NL Abdomen: Atraumatic, Soft, No guarding, No rebound, No distention Tenderness/Guarding/Rebound: Positive: Tender RLQ... (Mild) Incisions are clean, dry, and intact. No signs of infection or abscess. Erythema due to applying ice to the area. Back: Full range of motion, Painless range of motion Upper Extremity / MS: Atraumatic, Full range of motion, Neurologic intact, Vascular intact Lower Extremity / Pelvis / MS: Atraumatic, Full range of motion, Neurologic intact, Vascular intact Interpretation & Diagnostics Lab Results Interpretation Result Diagram: 11/09/16 1802 11/09/16 1802 Test 11/09/16 18:02 11/09/16 19:17 White Blood Count 4.4th/mm3 (3.8-10.1) Red Blood Count 4.09mil/mm3 (3.90-5.20) Hemoglobin 11.7g/dL (12.0-15.6) Hematocrit 36.9% (35.0-46.0) Mean Corpuscular Volume 90.2fL (81-100) Mean Corpuscular Hemoglobin 28.6pg (27.0-35.0) Mean Corpuscular Hemoglobin Concent 31.7% (32.0-37.0) Red Cell Distribution Width 13.6% (12.3-15.4) Platelet Count 279bil/L (150-400) Neutrophils (%) (Auto) 45.0% (40-74) Lymphocytes (%) (Auto) 40.3% (14-46) Monocytes (%) (Auto) 8.7% (4-12) Eosinophils (%) (Auto) 5.3% (0-5) Basophils (%) (Auto) 0.5% (0-3) Sodium Level 138mEq/L (134-144) Potassium Level 4.1mEq/L (3.5-5.2) Chloride Level 102mEq/L (97-108) Carbon Dioxide Level 23mmol/L (18-29) Blood Urea Nitrogen 14mg/dL (6-24) Creatinine 0.69mg/dL (0.57-1.00) Estimat Glomerular Filtration Rate 128mL/min (>59) Glucose Level 124mg/dL (60-99) Calcium Level 9.3mg/dL (8.5-10.1) Magnesium Level 2.2mg/dL (1.6-2.6) Total Bilirubin 0.2mg/dL (0.0-1.2) Aspartate Amino Transf (AST/SGOT) 29U/L (0-50) Alanine Aminotransferase (ALT/SGPT) 55U/L (0-32) Alkaline Phosphatase 86U/L (25-150) Total Protein 7.1g/dL (6.4-8.4) Albumin 4.0g/dL (3.4-5.0) Lipase 19U/L (13-60) Hold Caceres Top Tube Received (Received) Urine Color Dark yellow (YELLOW) Urine Appearance Clear (CLEAR,HAZY) Urine pH 5.5 (5.0-8.0) Urine Specific [place] 1.010 (1.003-1.035) Urine Protein Negativemg/dL (NEG,TRACE) Urine Glucose (UA) Negativemg/dL (NEGATIVE) Urine Ketones Negativemg/dL (NEGATIVE) Urine Occult Blood Large (NEGATIVE) Urine Nitrite Negative (NEGATIVE) Urine Bilirubin Negative (NEGATIVE) Urine Urobilinogen Normalmg/dL (NORMAL) Urine Leukocyte Esterase Negative (NEGATIVE) Urine RBC >50/hpf (0-2) Urine WBC 0-5/hpf (0-5) Urine Epithelial Cells Few/hpf (NONE-MOD) Urine Crystals None seen (NONE SEEN) Urine Bacteria None/hpf (NONE-FEW) Urine Hyaline Casts None/lpf (NONE) Urine Granular Casts None seen (NONE SEEN) Urine Waxy Casts None seen (NONE SEEN) Urine Red Blood Cell Casts None seen (NONE SEEN) Urine White Blood Cell Casts None seen (NONE SEEN) Urine Mucus None seen (None Seen) Urine Trichomonas None seen (NONE SEEN) Urine Yeast None (NONE SEEN) Urinalysis Comment None Urine Culture Reflexed Not indicated Lab Results Interpretation: CBC normal CMP normal Lipase normal CT Abd / Pelvis Interpretation IMPRESSION: Prior cholecystectomy, gastric reduction surgery. Moderate colonic obstipation bilaterally. 2 adjacent 3 x 4 mm lower third collecting system calculi are seen on the left, within the kidney, but no ureteral stone or evidence of urinary tract obstruction or inflammation is found. Dictated by: Joe Pop M.D. on 11/09/2016 at 21:46 Study type: Abdominal CT no contrast Interpretation / Wet Read by: Interpret - Radiologist Re-Eval/Medical Decision Med Decision/Clinical Course This is a 51 oh female presents with worsening abdominal pain. This is a patient a cholecystectomy in September of this year, and then had some sort of atypical hernia repair done a [facility] in recent weeks, but now presents with worsening abdominal pain. She reports sharp burning numbness pain near where they went through the same incision points of the cholecystectomy to perform this procedure. She had blood work done today at the surgeon's office, but I worsening pains or cane for the numbers department. She denies fever, has no additional complaints. On exam she appears well. She has been applying ice to the abdomen or some redness where the ice was applied that she says is new from the ice itself, and he indicates it was not red at all before she came in. I do not appreciate clinical signs of cellulitis or infection. There is no purulence or drainage. The wound sites appear well. Her abdomen is marginally tender in the right lower quadrant, but without guarding or rebound. The rest of exams normal. Lab work was obtained and was normal. An IV was not able to be obtained, and a CT was performed with oral contrast only, but no pathology was identified. The patient is frustrated that that a definitive etiology is not been determined, but I am not finding indication that admission or additional testing is warranted. Her follow-up appointment now with surgery is not for another few days and she is concerned about her pain medicine. I have in the N provided a short course of Percocet, she tells me she does get Percocet from a provider and is on a pain contract and the need to review disclose her medications from the bursa permit were reviewed. At this point it dangerous or definitive cause has not been established. There is no finding of abscess, obstruction, perforation, wound infection, or other dangerous etiology were not identified. The patient is discharged in stable condition. Routine precautions reviewed. Source of Hx: Old records Re-Evaluation/Progress : Time of Eval: 22:15 Re-Evaluation/Progress Note: Pt rechecked. Informed pt of plan for discharge. Pt understands and agrees with plan for discharge. F/U instructions and RTER warnings given. All questions addressed. Differential Diagnosis: Positive: Acute abdominal pain, Negative: Bowel obstruction, Cellulitis, Constipation, Contusion abdominal wall, Diverticular disease, Ectopic preg ruptured, Ectopic , Esophageal rupture, Gun shot wound abdomen, Intrauterine , Pancreatitis , Peritonitis, Pyelonephritis, Stab wound abdomen Counseled Regarding: Diagnosis, Lab results, Need for follow-up, When/why to return to ED Discharge & Departure Primary Impression: Abdominal Pain Generalized Disposition: Home Discharge Condition All VS Reviewed: Yes Condition: Stable Additional Instructions: 1. A dangerous cause of the abdominal pain was not identified. 2. There were no findings of an abscess or complication from your recent surgery. 3. You blood work was also normal. 4. You do need to still follow up with your surgeon. (Bring a copy of your laboratory tests and CT to your appointment). 5. I have provided an additional prescription for Percocet to use if needed for pain to get CT her appointment next week with her surgeon. Please make sure you tell your prescribers that you received this medicine.. NOTE: This medication does contain a narcotic and causes drowsiness. No driving for at least 4 hours after taking. Referrals: James Whitney DO (PCP) Scribe Attestation Portions of this note were transcribed by Reginald Rowell and Catarina Brown. I, Dr. Almeida personally performed the history, physical exam and medical decision -making; I reviewed and confirmed the accuracy of the information in the transcribed note. Signed by: Reginald Rowell and Donald Figueroa, 11/09/16 and 20:30 copies to: James Whitney Matthew F MD Nov 09, 2016 19:56 Catarina Fuller Nov 09, 2016 20:03 REGINALD ROWELL Nov 09, 2016 20:19
[2016-11-09] MEDS ORDERED: Iohexol 300 mg/mL 30 mL Inj PO ONE (20:05)
[2016-11-09] MEDS ORDERED: HYDROmorphone 1 mg/mL Inj IVPUSH ONE (20:10)
[2016-11-09] MEDS ORDERED: Ondansetron 2 mg/mL 2 mL Inj IVPUSH ONE (20:10)
[2016-11-09] MEDS ORDERED: HYDROmorphone 1 mg/mL Inj IM ONE ×2 (21:20→22:25)
--- NOTE | 2016-11-09 21:50 | DRSVH ---
PROCEDURE: CT ABDOMEN AND PELVIS WITHOUT CONTRAST ([id number]) INDICATIONS: RLQ pain s/p hernia repair TECHNIQUE: After the administration of oral contrast, 5 mm thick sections acquired from the diaphragms to the sy mphysis. 5 mm coronal and sagittal reformats were performed. For radiation dose reduction, the foll owing was used: automated exposure control, adjustment of mA and/or kV according to patient size. COMPARISON: [facility], , ABDOMEN [facility], 09/08/2016, 17:20. FINDINGS: Image quality: Excellent. ABDOMEN: Lung bases: Lung bases are clear. Heart size is normal. Solid organs: Liver and spleen are normal in size. Gallbladder is surgically absent. Pancreas is n ormal in size. No adrenal nodules. Both kidneys are normal in size, without hydronephrosis or right -sided nephrolithiasis, but there are 2 adjacent 3 x 4 mm nonobstructing stones of the lower third co llecting system of the left kidney. Peritoneum and bowel: Small bowel loops demonstrate normal wall thickness and caliber. No free flui d or air. Moderate colonic obstipation. Gastric reduction surgery. Nodes and vessels: No retroperitoneal or mesenteric adenopathy by size criteria. Aorta and inferior vena cava are normal in size. Miscellaneous: No ventral hernias. PELVIS: Genitourinary: Bladder wall thickness is normal. Miscellaneous: No inguinal hernias or adenopathy. Bones: No suspicious bony lesions. No vertebral body compression fractures. IMPRESSION: Prior cholecystectomy, gastric reduction surgery. Moderate colonic obstipation bilatera lly. 2 adjacent 3 x 4 mm lower third collecting system calculi are seen on the left, within the kidney, bu t no ureteral stone or evidence of urinary tract obstruction or inflammation is found. Dictated by: Joe Pop M.D. on 11/09/2016 at 21:46 Approved by: Joe Pop M.D. on 11/09/2016 at 21:49
[2016-11-09] MEDS ORDERED: _oxyCODONE/APAP 5-325 mg Tablet PO PRN (22:10)
[2016-11-09] MEDS ORDERED: OXYC1TAB24 PO (22:53)
[2016-11-09 23:22] VITALS: BP 122/75; PULSE 87; RESP 14; O2SAT 100
== END 2016-11-09 23:24 | disposition home or self-care (01) ==
LOC: SED 17:38
DX: R10.84 Generalized abdominal pain (principal); R11.10 Vomiting, unspecified; M79.7 Fibromyalgia; I10 Essential (primary) hypertension; Z98.890 Other specified postprocedural states; F17.200 Nicotine dependence, unspecified, uncomplicated; Z88.2 Allergy status to sulfonamides; Z88.6 Allergy status to analgesic agent; Z88.8 Allergy status to other drugs, medicaments and biological substances
CPT/HCPCS: 36415; 74176; 80053; 81000; 83690; 83735; 85025; 96372; 99285; J1170; Q9967